=== PATIENT | female | born 1960 | race Caucasian/White ===

== ENCOUNTER 2017-02-15 09:25 | Emergency (ER) | payer MEDICAID ==
[2017-02-15 10:09] VITALS: TEMP 98.1; O2SAT 100; BMI 26.5
--- NOTE | 2017-02-15 10:18 | ED PDOC ---
Arrival/HPI - General Chief Complaint: Abnormal Labs Time Seen by Provider: 02/15/17 09:30 Historian: Patient, Family - History of Present Illness Narrative History of Present Illness (Text): 02/15/17 10:15 A 56 year old female, whose past medical history includes --, presents to the emergency department after being suggested by PMD for low white blood cells. The patient states she was getting routine blood work done, when she got a call last night stating that she should go get evaluated by a doctor in the emergency department. She states she feels fine and she just has intermittent sharp pain in her left heel. The patient denies any chest pain, cough, fever, abdominal pain, headaches, or any other complaints at this time. Time/Duration: Other (sent in by PMD) Symptom Onset: Other Activities at Onset: Light Context: Home Past Medical History - Provider Review Nursing Documentation Reviewed: Yes - Infectious Disease Hx of Infectious Diseases: None - Tetanus Immunization Tetanus Immunization: Unknown - Reproductive Menopause: Yes - Past Medical History Past Medical History: No Previous - Cardiac Hx Cardiac Disorders: Yes (Patient unable to specify) - Pulmonary Hx Respiratory Disorders: Yes Hx Asthma: Yes (ASTHMA EXACERBATION 10-25-14) - Neurological Hx Neurological Disorder: No - HEENT Hx HEENT Disorder: No - Renal Hx Renal Disorder: Yes Hx Kidney Stones: Yes - Endocrine/Metabolic Hx Endocrine Disorders: Yes (Thyroid, patient unable to specify) - Hematological/Oncological Hx Blood Disorders: No - Integumentary Hx Dermatological Disorder: No - Musculoskeletal/Rheumatological Hx Musculoskeletal Disorders: No Other/Comment: hx nerves injections ? - Gastrointestinal Hx Gastrointestinal Disorders: Yes Hx Gastroesophageal Reflux: Yes - Genitourinary/Gynecological Hx Genitourinary Disorders: Yes (MYOMECTOMY) - Psychiatric Hx Psychophysiologic Disorder: No Hx Depression: No Hx Emotional Abuse: No Hx Physical Abuse: No Hx Substance Use: No - Past Surgical History Past Surgical History: Non-Contributing - Surgical History Hx Appendectomy: Yes Hx Tonsillectomy: Yes - Suicidal Assessment Feels Threatened In Home Enviroment: No Family/Social History - Physician Review Nursing Documentation Reviewed: Yes Family/Social History: Unknown Family HX Smoking Status: Never Smoked Hx Alcohol Use: No Hx Substance Use: No Hx Substance Use Treatment: No Allergies/Home Meds Allergies/Adverse Reactions: Allergies No Known Allergies Allergy (Verified 02/15/17 15:16) Review of Systems - Physician Review All systems were reviewed & negative as marked: Yes - Review of Systems Constitutional: absent: Fevers Respiratory: absent: Cough Cardiovascular: absent: Chest Pain Gastrointestinal: absent: Abdominal Pain Musculoskeletal: Other (left heel pain ) Neurological: absent: Headache Physical Exam Vital Signs Reviewed: Yes Vital Signs Temp Pulse Resp BP Pulse Ox 02/15/17 13:10 98.1 F 82 82 H 126/73 100 02/15/17 12:00 79 18 118/71 100 02/15/17 10:08 98.1 F 86 20 121/77 100 Temperature: Afebrile Blood Pressure: Normal Pulse: Regular Respiratory Rate: Normal Appearance: Positive for: Well-Appearing, Non-Toxic, Comfortable Pain Distress: None Mental Status: Positive for: Alert and Oriented X 3 - Systems Exam Head: Present: Atraumatic, Normocephalic Pupils: Present: PERRL Extroacular Muscles: Present: EOMI Conjunctiva: Present: Normal Mouth: Present: Moist Mucous Membranes Neck: Present: Normal Range of Motion Respiratory/Chest: Present: Clear to Auscultation, Good Air Exchange. No: Respiratory Distress, Accessory Muscle Use Cardiovascular: Present: Regular Rate and Rhythm, Normal S1, S2. No: Murmurs Abdomen: Present: Normal Bowel Sounds. No: Tenderness, Distention, Peritoneal Signs Back: Present: Normal Inspection Upper Extremity: Present: Normal Inspection. No: Cyanosis, Edema Lower Extremity: Present: Normal Inspection. No: Edema Neurological: Present: GCS=15, CN II-XII Intact, Speech Normal Skin: Present: Warm, Dry, Normal Color. No: Rashes Psychiatric: Present: Alert, Oriented x 3, Normal Insight, Normal Concentration Medical Decision Making ED Course and Treatment: 02/15/17 10:05 Impression: A 56 year old female sent in by PMD for low white blood cell count. Differential Diagnosis included but are not limited to: Plan: -- BMP -- TSH -- CBC -- Reassess and disposition Progress Notes: - Lab Interpretations Lab Results: 02/15/17 11:50 02/15/17 11:50 Lab Results 02/15/17 12:45: Urine Color Yellow, Urine Appearance Clear, Urine pH 6.0, Ur Specific [place] >= 1.030, Urine Protein Negative, Urine Glucose (UA) Negative, Urine Ketones Negative, Urine Blood Negative, Urine Nitrate Negative, Urine Bilirubin Negative, Urine Urobilinogen 0.2, Ur Leukocyte Esterase Negative 02/15/17 11:50: TSH 3rd Generation 2.2 02/15/17 11:50: Sodium 142, Potassium 4.8, Chloride 109, Carbon Dioxide 24, Anion Gap 14, BUN 19, Creatinine 0.7, Est GFR ( Amer) > 60, Est GFR (Non- Af Amer) > 60, Random Glucose 84, Calcium 9.2 02/15/17 11:50: WBC 3.0 L D, RBC 4.61, Hgb 12.7, Hct 39.2, MCV 85.0, MCH 27.5, MCHC 32.4, RDW 13.9, Plt Count 190, MPV 12.0 H, Gran % 38.4 L, Lymph % (Auto) 52.9 H, [place] % (Auto) 6.4 H, Eos % (Auto) 2.0, Baso % (Auto) 0.3, Gran # 1.14 L , Lymph # 1.6, [place] # 0.2, Eos # 0.1, Baso # 0.01 - Scribe Statement The provider has reviewed the documentation as recorded by the [employer] Art Provider Scribe Attestation: All medical record entries made by the Scribe were at my direction and personally dictated by me. I have reviewed the chart and agree that the record accurately reflects my personal performance of the history, physical exam, medical decision making, and the department course for this patient. I have also personally directed, reviewed, and agree with the discharge instructions and disposition. Disposition/Present on Arrival - Present on Arrival Any Indicators Present on Arrival: No History of DVT/PE: No History of Uncontrolled Diabetes: No Urinary Catheter: No History of Decub. Ulcer: No History Surgical Site Infection Following: None - Disposition Have Diagnosis and Disposition been Completed?: Yes Diagnosis: Leukopenia Disposition: HOME/ ROUTINE Disposition Time: 13:03 Patient Plan: Discharge Condition: IMPROVED Additional Instructions: You have low white blood cell counts. None of your other labs are low however he may stop taking PTU until further notice and follow-up with your primary doctor. Forms: [employer] (Indian)
[2017-02-15 12:02] LABS: BASO # 0.01 K/mm3 (0.0-2.0); BASO % 0.3 % (0.0-3.0); EOS # 0.1 (0.0-0.7); GRAN # 1.14 (1.4-6.5); GRAN % 38.4 % (50.0-68.0); HEMATOCRIT 39.2 % (36.0-48.0); LYMPH # 1.6 (1.2-3.4); LYMPH % 52.9 % (22.0-35.0); MEAN CORPUSCULAR HEMOGLOBIN 27.5 pg (25.0-35.0); MEAN CORPUSCULAR HGB CONC 32.4 g/dl (31.0-37.0); MONO # 0.2 (0.1-0.6); MONO % 6.4 % (1.0-6.0); RED CELL DISTRIBUTION WIDTH 13.9 % (11.5-14.5)
[2017-02-15 12:10] LABS: BLOOD UREA NITROGEN 19 mg/dL (7-21); CALCIUM 9.2 mg/dL (8.4-10.5); CARBON DIOXIDE 24 mmol/L (21-33); CHLORIDE 109 mmol/L (95-110); GFR AFRICAN-AMERICAN > 60; GLUCOSE,RANDOM 84 mg/dL (70-110); POTASSIUM 4.8 mmol/L (3.6-5.0); SODIUM 142 mmol/L (132-148)
[2017-02-15 12:58] LABS: URINE BILIRUBIN NEGATIVE (NEGATIVE); URINE BLOOD NEGATIVE (NEGATIVE); URINE GLUCOSE (UA) NEGATIVE (NEGATIVE); URINE KETONE NEGATIVE (NEGATIVE); URINE LEUKOCYTE ESTERASE NEGATIVE Leu/uL (NEGATIVE); URINE PROTEIN NEGATIVE mg/dL (<30 mg/dL); URINE UROBILINOGEN 0.2 E.U./dL (<1 E.U./dL)
[2017-02-15 12:59] LABS: URINE APPEARANCE CLEAR (CLEAR); URINE COLOR YELLOW (YELLOW)
[2017-02-15 15:14] VITALS: BP 126/73; PULSE 82; RESP 82
== END 2017-02-15 13:10 | disposition home or self-care (01) ==
LOC: ED 09:25
DX: D72.819 Decreased white blood cell count, unspecified (principal)

== ENCOUNTER 2018-06-30 09:52 | Outpatient (CLI) | payer MEDICAID | END 2018-06-30 09:53 | disposition home or self-care (01) | LOC: RAD 09:52 | DX: E04.1 Nontoxic single thyroid nodule (principal); E05.90 Thyrotoxicosis, unspecified without thyrotoxic crisis or storm; E66.3 Overweight; R73.09 Other abnormal glucose; Z12.31 Encounter for screening mammogram for malignant neoplasm of breast ==